=== PATIENT | male | born 1975 | race American Indian/Alaskan Native ===

== ENCOUNTER 2018-07-06 11:27 | Emergency (ER) | payer OTHER ==
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
[2018-07-06 11:52] VITALS: BP 123/78
--- NOTE | 2018-07-06 13:32 | XRay Report ---
CERVICAL SPINE, 3 views: History: Neck pain. Findings: Eehn-[id number] degenerative disc disease is identified at C3-4, C4-5 and C5-6. No evidence for fracture, malalignment or bone lesion. The posterior elements and facet joints are unremarkable. The prevertebral soft tissues are normal. Impression: Cervical spondylosis. No evidence for acute injury to the cervical spine.
--- NOTE | 2018-07-06 13:32 | XRay Report ---
LUMBOSACRAL SPINE, 3 VIEWS: History: Back pain Findings: The vertebral bodies, disk spaces and posterior elements are intact. No compression deformity or malalignment. The SI joints are symmetric and unremarkable. Impression: 1. No evidence for acute injury to the lumbar spine.
[2018-07-06] MEDS ORDERED: ULTRAM PO ONE (16:11)
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
== END 2018-07-06 16:34 | disposition home or self-care (01) ==
LOC: ED 11:27
DX: S16.1XXA Strain of muscle, fascia and tendon at neck level, initial encounter (principal); M54.5 Low back pain; F17.200 Nicotine dependence, unspecified, uncomplicated; V49.49XA Driver injured in collision with other motor vehicles in traffic accident, initial encounter; Y93.89 Activity, other specified; Y92.89 Other specified places as the place of occurrence of the external cause; Y99.8 Other external cause status
CPT/HCPCS: 72040; 72100